=== PATIENT | male | born 1950 | race Two or more races ===

== ENCOUNTER 2023-11-01 11:48 | Emergency (ER) | payer OTHER ==
[~2023-11-01] VITALS: Ht 193 cm; Wt 123.6 kg
[2023-11-01] MEDS ORDERED: TETANUS-DIPTH-ACEL PERTUSSIS 0.5ML SYR Tdap IM ONE (15:15)
[2023-11-01 15:22] VITALS: BP 136/78; PULSE 114; RESP 18; TEMP 97.7; O2SAT 94
[2023-11-01] MEDS ORDERED: AMPICILLIN & SULBACTAM SODIUM 3 GM in SODIUM CHL 0.9% 100 ML IV SCH (15:30)
[2023-11-01] MEDS ORDERED: AUG875T PO (15:58)
== END 2023-11-01 15:58 | disposition home or self-care (01) ==
LOC: ER 11:48
DX: S61.412A Laceration without foreign body of left hand, initial encounter (principal); S61.452A Open bite of left hand, initial encounter; I10 Essential (primary) hypertension; W54.0XXA Bitten by dog, initial encounter; Y93.89 Activity, other specified; Y92.89 Other specified places as the place of occurrence of the external cause; Y99.8 Other external cause status
CPT/HCPCS: 12002; 90471; 90715

== ENCOUNTER 2025-06-04 17:46 | Emergency (ER) | payer OTHER ==
[~2025-06-04] VITALS: Ht 190.5 cm; Wt 110.3 kg
[~2025-06-04 17:46] MED LIST: AUG875T PO
[2025-06-04 18:31] LABS: Hematocrit 38.8 % (41.0-53.0); Hemoglobin 13.3 g/dL (13.5-17.5); Mean Corpuscular Hemoglobin 31.3 pg (28.0-32.0); Mean Corpuscular Volume 91.6 fL (80.0-100.0); Nucleated Red Blood Cells % 0.1 %
--- NOTE | 2025-06-04 18:36 | ECG ---
[facility] Test Date: 2025-06-04 Test Time: 18:04:34 Pat Name: CALDERON ROBERTS Department: er Room: Gender: M Clinical Rehabilitation Liaison: : 1950 Requested By: MT DE SOUZA Order Number: [id number] Reading MD: Damian Morgan Measurements Intervals [place] Rate: 83 P: -41 NH: 142 QRS: -92 QRSD: 159 T: 20 QT: 429 QTc: 505 Interpretive Statements Sinus rhythm RBBB and LAFB Electronically Signed On 06-04-2025 19:39:25 PDT by Damian Morgan Please click the below link to view image of tracing.
[2025-06-04 18:48] LABS: Alanine Aminotransferase 21 U/L (7-40); Albumin 4.4 g/dL (3.2-4.8); Alkaline Phosphatase 88 U/L (46-116); Anion Gap 7 (5-15); BUN/Creatinine Ratio 19.2 (10.0-20.0); Bilirubin, Total 0.4 mg/dL (0.2-1.0); Blood Urea Nitrogen 20 mg/dL (9-23); Calcium 9.8 mg/dL (8.7-10.4); Carbon Dioxide 30 mmol/L (20-31); Chloride 102 mmol/L (98-107); Potassium 3.8 mmol/L (3.5-5.1); Sodium 139 mmol/L (136-145); Total Protein 6.7 g/dL (5.7-8.2)
--- NOTE | 2025-06-04 18:48 | DVH ---
CHEST RADIOGRAPH REASON FOR EXAM: syncope COMPARISON: None TECHNIQUE: One view of the chest is provided FINDINGS: The cardiomediastinal silhouette is within normal limits for size. There is bibasilar airs pace disease which may represent atelectasis. There is no significant pleural effusion. There is no pneumothorax. No acute osseous abnormality is identified. IMPRESSION: Bibasilar airspace disease which may represent atelectasis. Correlate clinically to rule out pneumon ia.
[2025-06-04 18:49] LABS: Glucose 127 mg/dL (74-106)
[2025-06-04 19:43] VITALS: BP 128/81; PULSE 85; RESP 20; TEMP 98.2; O2SAT 96
--- NOTE | 2025-06-04 20:01 | ED.PDOC ---
History of Present Illness HPI Comments 74-year-old male complaining of syncopal episode while he was at work. 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 States he woke up on the floor with staff surrounding him. Says he can feel himself going down he was able to got himself down, denies hitting his head from what he can remember. Patient denies any prior history of syncopal episodes. Denies any cardiac history. Denies any chest pain. Denies any fever cough or congestion. Nothing makes it better, nothing makes it worse. Chief Complaint: Syncope Time Seen by MD: 18:00 Primary Care Provider: JUAN Reviewed Notes: Nurses Notes Allergies: Coded Allergies: NO KNOWN ALLERGIES (Unverified , 11/01/23) Home Meds Active Scripts Amoxicillin & Pot Clavulanate (AUGMENTIN TABLET) 875 Mg Tb, 875 MG PO BID for 10 Days, #20 TAB 0 Refills Prov:PERCY ESPARZA NP 11/01/23 Information Source: Patient Mode of Arrival: Wheelchair Past Medical History PAST MEDICAL HISTORY: Denies Surgical History: Denies all surgeries Family History Family History: Reviewed,noncontributory to illness Social History Smoker: Non-Smoker Alcohol: Denies ETOH Use Drugs: Denies Drug Use Constitutional: denies: chills, diaphoresis, fatigue, fever, malaise, sweats, weakness, others EENTM: denies: blurred vision, double vision, ear bleeding, ear discharge, ear drainage, ear pain, ear ringing, eye pain, eye redness, hearing loss, mouth pain, mouth swelling, nasal discharge, nose bleeding, nose congestion, nose pain, photophobia, tearing, throat pain, throat swelling, voice changes, others Respiratory: denies: cough, hemoptysis, orthopnea, SOB at rest, shortness of breath, SOB with excertion, stridor, wheezing, others Cardiovascular: reports: dizzy spells, syncope; denies: chest pain, diaphoresis, Dyspnea on exertion, edema, irregular heart beat, left arm pain, lightheadedness, palpitations, PND, others Gastrointestinal: denies: abdomen distended, abdominal pain, blood streaked bowels, constipated, diarrhea, dysphagia, difficulty swallowing, hematemesis, melena, nausea, poor appetite, poor fluid intake, rectal bleeding, rectal pain, vomiting, others Genitourinary: denies: burning, dysuria, flank pain, frequency, hematuria, incontinence, penile discharge, penile sore, pain, testicle pain, testicle swelling, urgency, others Neurological: denies: dizziness, fainting, headache, left sided numbness, left sided weakness, numbness, paresthesia, pre-existing deficit, right sided numbness, right sided weakness, seizure, speech problems, tingling, tremors, weakness, others Musculoskeletal: denies: back pain, gout, joint pain, joint swelling, muscle pain, muscle stiffness, neck pain, others Integumetry: denies: bruises, change in color, change in hair/nails, dryness, laceration, lesions, lumps, rash, wounds, others Allergic/Immunocompromised: denies: Difficulty Healing, Frequent Infections, Hives, Itching, others Physical Exam General Appearance: No Apparent Distress, Normal HEENT: Normal ENT Inspection, Pharynx Normal, TMs Normal Neck: Full Range of Motion, Non-Tender, Normal, Normal Inspection Respiratory: Chest Non-Tender, Lungs Clear, No Accessory Muscle Use, No Respiratory Distress, Normal Breath Sounds Cardiovascular: No Edema, No JVD, No Murmur, No Gallop, Normal Peripheral Pulses, Regular Rate/Rhythm Breast Exam: Deferred Gastrointestinal: No Organomegaly, Non Tender, No Pulsatile Mass, Normal Bowel Sounds, Soft Genitalia: Deferred Pelvic: Deferred Rectal: Deferred Extremities: No calf tenderness, Normal capillary refill, Normal inspection, Normal range of motion, Non-tender, No pedal edema Musculoskeletal : Apperance: Normal 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 Was a procedure done?: No Differential Dx Considerations may include: [place], CVA, vertigo, X-Ray, Labs, Meds, VS Vital Signs Date Time Temp Pulse Resp B/P (MAP) Pulse Ox O2 Delivery O2 Flow Rate FiO2 06/04/25 19:43 85 20 96 Room Air 06/04/25 19:43 98.2 85 20 128/81 (97) 96 98.2 06/04/25 18:04 83 06/04/25 17:53 98.3 91 18 132/94 (107) 96 98.3 Lab Test 06/04/25 19:17 06/04/25 18:17 06/04/25 17:55 Range/Units Troponin I High Sensitivity 9 8 </=54 ng/L White Blood Count 5.0 4.4-10.8 10^3/uL Red Blood Count 4.23 L 4.5-5.90 10^6/uL Hemoglobin 13.3 L 13.5-17.5 g/dL Hematocrit 38.8 L 41.0-53.0 % Mean Corpuscular Volume 91.6 80.0-100.0 fL Mean Corpuscular Hemoglobin 31.3 28.0-32.0 pg Mean Corpuscular Hemoglobin Concent 34.2 32.0-36.0 g/dL Red Cell Distribution Width 13.7 11.8-14.3 % Platelet Count 231 140-450 10^3/uL Mean Platelet Volume 7.8 6.9-10.8 fL Neutrophils (%) (Auto) 55.8 37.0-80.0 % Lymphocytes (%) (Auto) 33.3 10.0-50.0 % Monocytes (%) (Auto) 7.9 0.0-12.0 % Eosinophils (%) (Auto) 2.2 0.0-7.0 % Basophils (%) (Auto) 0.8 0.0-2.0 % Neutrophils # (Auto) 2.8 1.6-8.6 10 ^3/uL Lymphocytes # (Auto) 1.7 0.4-5.4 10 ^3/uL Monocytes # (Auto) 0.4 0-1.3 10 ^3/uL Eosinophils # (Auto) 0.1 0-0.8 10 ^3/uL Basophils # (Auto) 0 0-0.2 10 ^3/uL Nucleated Red Blood Cells 0.1 % Sodium Level 139 136-145 mmol/L Potassium Level 3.8 3.5-5.1 mmol/L Chloride Level 102 98-107 mmol/L Carbon Dioxide Level 30 20-31 mmol/L Anion Gap 7 5-15 Blood Urea Nitrogen 20 9-23 mg/dL Creatinine 1.04 0.700-1.30 mg/dL Glomerular Filtration Rate Calc 76 >90 mL/min BUN/Creatinine Ratio 19.2 10.0-20.0 Serum Glucose 127 H 74-106 mg/dL Calcium Level 9.8 8.7-10.4 mg/dL Total Bilirubin 0.4 0.2-1.0 mg/dL Aspartate Amino Transferase (AST) 16 13-40 U/L Alanine Aminotransferase (ALT) 21 7-40 U/L Alkaline Phosphatase 88 46-116 U/L Total Protein 6.7 5.7-8.2 g/dL Albumin 4.4 3.2-4.8 g/dL POC Glucose 159 H 70-106 mg/dl X-Ray, Labs, Meds, VS Comment Patient reports having cardiology checked out five years ago, had echocardiogram done, was told exam was on negative. Also had an angiogram done and was told exam was negative. Imaging: X-rays and CT scans were reviewed and interpreted by this provider, imaging shows no fractures and no pathological disease. Pending radiology review. Laboratory: Labs reviewed and interpreted by this provider. No significant abnormalities noted. Patient has prior medical visits reviewed. Med reconciliation performed Vital signs reviewed Time of 1ST Reevaluation: 20:01 Reevaluation 1ST: Improved Patient Education/Counseling: Diagnosis, Treatment, Need For Follow Up (Follow up PCP next available appointment.) Family Education/Counseling: Diagnosis SEPSIS Sepsis Screen Date sepsis recognized/suspect: Jun 04, 2025 Time Sepsis recognized/suspect: 1944 Recent Procedure: No On Antibiotic Therapy: No Respiratory Rate >20: No Heart Rate >90: No Temp<36 C (96.8 F) or >38.3 C: No SBP <90 or MAP <65 mmHG: No New Acute Mental Status Change: No Is the patient on CPAP, BIPAP,: No Physician Orders Urinalysis (06/04/25 18:01) Chest Xray 1 View (06/04/25 18:01) Troponin-I Hs (06/04/25 21:01) Electrocardigram (06/04/25 18:03) Electrocardigram (06/04/25 19:03) Electrocardigram (06/04/25 21:03) Vital Signs Date Time Temp Pulse Resp B/P (MAP) Pulse Ox O2 Delivery O2 Flow Rate FiO2 06/04/25 19:43 85 20 96 Room Air 06/04/25 19:43 98.2 85 20 128/81 (97) 96 98.2 06/04/25 18:04 83 06/04/25 17:53 98.3 91 18 132/94 (107) 96 98.3 Laboratory Tests Test 06/04/25 18:17 White Blood Count 5.0 10^3/uL (4.4-10.8) Departure 1 Departure Time of Disposition: 20:00 Impression: Primary Impression: Syncopal episodes Qualified Codes: R55 - Syncope and collapse Disposition: 01 HOME / SELF CARE / HOMELESS Condition: Fair Discharged With: Self Critical Care Note Critical Care Time?: No Stability Stability form required: No Heart Score Heart Score: Heart Score Response (Comments) Value History Slightly Suspicious 0 EKG Normal 0 Age >65 2 Risk Factors No known risk factors 0 Troponin Normal limit 0 Total 2 MT DE SOUZA Jun 04, 2025 20:01
== END 2025-06-04 20:46 | disposition home or self-care (01) ==
LOC: ER 17:46
DX: R55 Syncope and collapse (principal); Z79.899 Other long term (current) drug therapy
CPT/HCPCS: 36415; 71045; 80053; 82947; 82962; 84484; 85025; 93005